=== PATIENT | female | born 2000 | race Caucasian/White ===

== ENCOUNTER 2021-03-29 14:42 | Emergency (ER) | payer BC, OTHER ==
[~2021-03-29] VITALS: Ht 162.6 cm; Wt 69.8 kg
[2021-03-29 14:45] VITALS: BP 113/58
--- NOTE | 2021-03-29 15:10 | ED General ---
General Chief Complaint: Trauma-Non Activation Stated Complaint: FALL-HEAD INJ | NOSE BLEED | MEMORY LOSS | NAUSEA Source of Information: Patient Exam Limitations: No Limitations History of Present Illness Date Seen by Provider: Mar 29, 2021 Time Seen by Provider: 14:50 Initial Comments Patient is a 20-year-old female presents with posterior headache and upper cervical neck pain after falling from horse approximately 45 minutes prior to ED arrival. Patient states she was riding a horse when it reared bucked her off causing her to land on her right hip and hit her head. Patient denies loss of consciousness but did report feeling dazed with blurred vision and memory loss lasting several minutes. Dizziness, blurred vision and memory loss of improved patient reports persistent dull headache, and nausea. She reports upper cervical neck pain. She reports right buttock pain but denies hip pain or pain with ambulation. She denies denies extremity weakness or loss of sensation. No other acute symptoms or complaints. Timing/Duration: 1 Hour Severity: Mild Modifying Factors: improves with Other Associated Systoms: Other Allergies and Home Medications Allergies Coded Allergies: No Known Drug Allergies (Unverified , 03/29/21) Patient Home Medication List Home Medication List Reviewed: Yes Review of Systems Review of Systems Constitutional: see HPI EENTM: see HPI Respiratory: see HPI Cardiovascular: see HPI Gastrointestinal: see HPI Genitourinary: see HPI Musculoskeletal: see HPI Skin: see HPI Psychiatric/Neurological: See HPI Hematologic/Lymphatic: See HPI Immunological/Allergic: see HPI All Other Systems Reviewed Negative Unless Noted: Yes Past Lyleiwj-Yisvhy-Mcsrft Hx Patient Social History Tobacco Use?: Yes Physical Exam Vital Signs Capillary Refill : Height, Weight, BMI Height: '" Weight: lbs. oz. kg; BMI Method: General Appearance: No Apparent Distress, Anxious Eyes: Bilateral Eye Normal Inspection, Bilateral Eye PERRL, Bilateral Eye EOMI HEENT: PERRL/EOMI, Normal ENT Inspection, Pharynx Normal, Other (Posterior scalp tenderness, no bruising, swelling or lacerations appreciated. No step- off.) Neck: Normal Inspection, Supple, Tender Midline (Upper cervical neck pain) Respiratory: Chest Non Tender, Lungs Clear, Normal Breath Sounds Cardiovascular: Regular Rate, Rhythm Gastrointestinal: Non Tender, Soft Neurologic/Psychiatric: Alert, Oriented x3, No Motor/Sensory Deficits, principal programmer II- XII Norm as Tested Focused Exam Sepsis Stage: Ruled Out Progress/Results/Core Measures Suspected Sepsis SIRS Temperature: Pulse: Respiratory Rate: Blood Pressure / Mean: Results/Orders My Orders Orders - TYSON COTTRELL DO Ct Head/Cervical Spine Wo (03/29/21 15:01) Acetaminophen Tablet (Tylenol Tablet) (03/29/21 16:00) Ondansetron Oral Dissolve Tab (Zofran (03/29/21 15:59) Vital Signs/I&O Capillary Refill : Departure Communication (Admissions) CT head/cervical spine: No acute intracranial injury/cervical spine injury, incidental left second maxillary sinusitis noted. Patient alert and oriented x4, no focal neurologic deficits. Patient does have residual dizziness mild headache and neck pain. CT head/cervical spine nonacute. Patient does complain of sinus fullness and symptoms. Typical closed head injury instructions provided. Will place on antibiotics. Return precautions reviewed. Patient verbalizes understanding and agreement with discharge instructions prior to departure. Impression Primary Impression: Concussion Additional Impressions: Acute cervical sprain Maxillary sinusitis, acute Disposition: HOME, SELF-CARE Condition: Stable Departure-Patient Inst. Decision time for Depature: 16:03 Referrals: OSCAR ÁLVAREZ MD (PCP/Family) Primary Care Physician Patient Instructions: Concussion in Adults, Sinusitis, Adult ED, Minor Head Injury, Adult ED Add. Discharge Instructions: Your evaluated in the emergency department for fall with head injury and neck pain. CT imaging studies were performed and did not show evidence of acute injury. Sinus infection was noted to be present. Please take 1000 mg of ibuprofen and/or 600 mg of ibuprofen every 6 hours as needed for pain. Take Zofran as needed for nausea. Avoid loud and stimulating environments for the next 2 to 3 days[address] not attempt to drive or perform any potentially dangerous activity while symptomatic. Follow-up with your PCP next week if symptoms persist. Return to the ED if new or worsening symptoms. All discharge instructions reviewed with patient and/or family. Voiced understanding. Scripts Ondansetron (Ondansetron Odt) 4 Mg Tab.rapdis 4 MG PO Q6H, #10 TAB Prov: TYSON COTTRELL DO 03/29/21 TYSON COTTRELL DO Mar 29, 2021 15:10
--- NOTE | 2021-03-29 15:35 | Diagnostic Imaging Report ---
PROCEDURE: CT head and CT cervical spine without contrast. TECHNIQUE: Multiple contiguous axial images were obtained through the brain and cervical spine without the use of intravenous contrast. Sagittal and coronal reformations through the cervical spine were then performed. Auto Exposure Controls were utilized during the CT exam to meet ALARA standards for radiation dose reduction. INDICATION: Bucked off of horse, now with neck and head pain. No relevant comparison. CT HEAD: There is no intracranial hemorrhage, hydrocephalus, edema, mass, mass effect nor evidence for an elevation of the intracranial pressures. The orbits, sinuses and calvarium nonacute. There is a shallow air-fluid level of the left maxillary sinus. The fluid appears low in density and this is likely inflammatory and is accompanied by some lobular membrane thickening inferiorly. Orbital contents nonacute. The sinus [place] intact. Mastoids clear. CT CERVICAL SPINE: Cervical body heights maintained, the alignment is anatomic. Spinal canal patent. There is no cervical fracture nor evidence for paravertebral hematoma. The central skull base appeared intact. Structures of the larynx unremarkable. IMPRESSION: CT HEAD: Likely inflammatory left maxillary sinus disease, no calvarial or demonstrated facial fracture or intracerebral hemorrhage. CT CERVICAL SPINE: Normal CT cervical spine. Dictated by: Dictated on workstation # [id number]
[2021-03-29] MEDS ORDERED: ONDANSETRON 4 MG (ZOFRAN) ORAL DISSOLVE TAB PO STA (15:59)
[2021-03-29] MEDS ORDERED: ACETAMINOPHEN 500 MG TAB (TYLENOL) PO ONE (16:00)
[2021-03-29] MEDS ORDERED: ONDA4TAB11 PO (16:05)
== END 2021-03-29 16:12 | disposition home or self-care (01) ==
LOC: ER FS 14:47
DX: S06.0X0A Concussion without loss of consciousness, initial encounter (principal); S13.9XXA Sprain of joints and ligaments of unspecified parts of neck, initial encounter; J01.00 Acute maxillary sinusitis, unspecified; V80.010A Animal-rider injured by fall from or being thrown from horse in noncollision accident, initial encounter
CPT/HCPCS: 70450; 72125